=== PATIENT | male | born 1985 | race Caucasian/White ===

== ENCOUNTER 2018-05-11 21:33 | Emergency (ER) | payer OTHER ==
[~2018-05-11] VITALS: Ht 185.4 cm; Wt 105.8 kg
[2018-05-11 21:34] VITALS: BP 140/79
== END 2018-05-11 22:50 | disposition home or self-care (01) ==
LOC: ED 22:16
DX: M25.561 Pain in right knee (principal); M25.572 Pain in left ankle and joints of left foot; F17.200 Nicotine dependence, unspecified, uncomplicated
CPT/HCPCS: 99283

== ENCOUNTER 2018-09-15 21:24 | Emergency (ER) | payer OTHER ==
[~2018-09-15] VITALS: Ht 182.9 cm; Wt 105.0 kg
--- NOTE | 2018-09-15 21:39 | NUR ---
pt presented with c/o lateral left knee pain after jumping off of forklift, about 4-5 ft off the ground, at appx 2100. Pt reports that his left foot feels like it's "numb and burning." +CMS. monitors applied, siderails up x2, call light within reach
[2018-09-15] MEDS ORDERED: HYDROcodone/APAP 5/325 TABLET ONE (21:41)
[2018-09-15] MEDS ORDERED: IBUPROFEN 600 MG TABLET ONE (21:41)
--- NOTE | 2018-09-15 21:44 | NUR ---
PT MEDICATED PER JUL. AWAITING XRAY
[2018-09-15 21:45] VITALS: BP 133/92
[2018-09-15] MEDS ORDERED: IBUPROFEN 600 MG TABLET PO ONE (22:00)
[2018-09-15] MEDS ORDERED: HYDROcodone/APAP 5/325 TABLET PO PRN (22:00)
--- NOTE | 2018-09-15 22:00 | NUR ---
[facility] SPECIALIST AT BEDSIDE
== END 2018-09-15 22:53 | disposition home or self-care (01) ==
LOC: ED 22:48
DX: S82.425A Nondisplaced transverse fracture of shaft of left fibula, initial encounter for closed fracture (principal); W18.30XA Fall on same level, unspecified, initial encounter; Y93.89 Activity, other specified; Y92.89 Other specified places as the place of occurrence of the external cause; Y99.8 Other external cause status
CPT/HCPCS: 29105; 99283

== ENCOUNTER 2019-06-08 19:57 | Emergency (ER) | payer BC, OTHER ==
[~2019-06-08] VITALS: Ht 182.9 cm; Wt 98.9 kg
[~2019-06-08 19:57] MED LIST: ACET-1600 PO
[2019-06-08 20:38] LABS: RAPID INFLUENZA A Negative (Negative); RAPID INFLUENZA B Negative (Negative)
[2019-06-08 21:47] VITALS: BP 157/82
== END 2019-06-08 22:12 | disposition home or self-care (01) ==
LOC: ED 22:06
DX: H92.01 Otalgia, right ear (principal); J00 Acute nasopharyngitis [common cold]; R19.7 Diarrhea, unspecified; M79.10 Myalgia, unspecified site; Z87.891 Personal history of nicotine dependence
CPT/HCPCS: 87081; 87400; 87880; 99283